=== PATIENT | female | born 1950 | race Two or more races ===

== ENCOUNTER 2018-05-29 06:35 | Emergency (ER) | payer SELFPAY ==
[~2018-05-29] VITALS: Ht 147.3 cm; Wt 86.6 kg
[2018-05-29 06:39] VITALS: Ht 147.3 cm; Wt 86.6 kg
[2018-05-29 07:22] LABS: CALCIUM 8.3 mg/dL (8.5-10.1); CHLORIDE SERUM 99 mmol/L (98-107); CREATININE SERUM 0.7 mg/dL (0.6-1.0); GFR1 > 60 mL/min; GLUCOSE SERUM 117 mg/dL (74-106); POTASSIUM SERUM 3.7 mmol/L (3.5-5.1); SODIUM SERUM 135 mmol/L (136-145)
[2018-05-29 07:26] LABS: ALBUMIN 3.5 g/dL (3.4-5.0); ALKALINE PHOSPHATASE 143 U/L (46-116); ALT/SGPT 22 U/L (14-59); AST/SGOT 13 U/L (15-37); BILIRUBIN TOTAL 0.29 mg/dL (0.20-1.00); LIPASE 117 IU/L (73-393)
[2018-05-29 07:30] LABS: TOTAL PROTEIN, SERUM 8.3 g/dL (6.4-8.2)
[2018-05-29 08:39] LABS: BASOPHIL % 0.4 % (0-2); PLATELET COUNT 282 x10^3mcL (130-400); RED CELL DISTRIBUTION WIDTH 13.9 % (11.5-14.5)
[2018-05-29 10:08] VITALS: BP 133/79
== END 2018-05-29 10:08 | disposition home or self-care (01) ==
LOC: ED 06:35
PROVIDERS: Emergency Medicine
DX: K80.20 Calculus of gallbladder without cholecystitis without obstruction (principal); K57.90 Diverticulosis of intestine, part unspecified, without perforation or abscess without bleeding; Z90.89 Acquired absence of other organs; Z98.890 Other specified postprocedural states
CPT/HCPCS: J1885; Q0092